=== PATIENT | female | born 1955 | race Caucasian/White ===

== ENCOUNTER 2023-06-29 14:03 | Outpatient (CLI) | payer MEDICARE, SELFPAY ==
[2023-06-29 14:05] LABS: Abs Immature Grans 0.01 10^3/uL (0.0-0.06); Absolute Basophil Count 0.05 10^3/uL (0.0-0.2); Absolute Eosinophil Count 0.09 10^3/uL (0.0-0.7); Absolute Lymphocyte Count 2.64 10^3/uL (1.2-3.4); Absolute Monocyte Count 0.49 10^3/uL (0.1-0.8); Absolute Neutrophil Count 3.11 10^3/uL (1.2-6.7); Basophils % 0.8; Eosinophils % 1.4; HCT 45.4 % (36.0-46.0); HGB 15.3 g/dL (11.2-15.7); Immature Grans % 0.2; Lymphocytes % 41.3; MCH 32.7 pg (27.0-33.0); MCHC 33.7 % (32.0-36.0); MCV 97 fL (80-95); MPV 9.8 fL (8.0-11.0); Monocytes % 7.7; Neutrophils % 48.6; Platelet Count 299 10^3/uL (130-400); RBC 4.68 10^6/uL (3.93-5.22); RDW 11.7 % (11.7-14.6); RDW-SD 41.9 fL; WBC 6.39 10^3/uL (4.4-10.8)
[2023-06-29 14:24] LABS: ALT 31 U/L (14-59); AST 29 U/L (15-37); Albumin 3.8 g/dL (3.4-5.0); Alkaline Phosphatase 105 U/L (46-116); Anion Gap 8.3 mmol/L (3-11); BUN 11 mg/dL (7-18); Bilirubin, Total 1.2 mg/dL (0.2-1.0); C-Reactive Protein 0.81 mg/dL (0.0-0.3); CO2 27.7 mmol/L (21.0-32.0); CREATININE 1.3 mg/dL (0.55-1.02); Calcium 10.5 mg/dL (8.5-10.1); Chloride 101 mmol/L (98-107); Estimated GFR 45.35 (mL/min/1.73m2); Glucose 121 mg/dL (74-106); Potassium 3.9 mmol/L (3.5-5.1); Sodium 137 mmol/L (136-145); Total Protein 8.1 g/dL (6.4-8.2)
[2023-06-30 12:25] LABS: ESR (LRH) 18 mm/hr
== END 2023-06-29 14:04 | disposition home or self-care (01) ==
LOC: LBO 14:04
PROVIDERS: Visit Provider Internal Medicine Rheumatology
DX: M45.9 Ankylosing spondylitis of unspecified sites in spine (principal); Z51.81 Encounter for therapeutic drug level monitoring; Z79.899 Other long term (current) drug therapy
CPT/HCPCS: 36415; 80053; 85652; 85025; 86140

== ENCOUNTER → 2023-12-01 01:49 | Outpatient (CLI) | payer MEDICARE, SELFPAY ==
--- NOTE | 2023-12-01 | DI.RAD_ITS ---
Exam(s) XR SACROILIAC JOINTS EXAM: XR SACROILIAC JOINTS CLINICAL HISTORY: M53.3(724.6) Sacroiliac jnt pain. TECHNIQUE: 2D digital imaging was performed. COMPARISON: No exams were available for comparison FINDINGS: 3 views No evidence of sacral fractures nor osseous lesions. Mild degenerative changes in the sacroiliac james nts appear age-appropriate. There is no ankylosis of the SI joints. On the lateral view there is chronic degenerative disc disease at multiple levels noted in the lumbar spine. Also facet arthropathy. IMPRESSION: As above. No ankylosis of the SI joints. No significant osseous lesions. DATA REPOSITORY: RADIATION DOSE DELIVERED:
--- NOTE | 2023-12-01 | DI.RAD_ITS ---
Exam(s) XR LUMBAR SPINE COMPLETE EXAM: XR LUMBAR SPINE COMPLETE CLINICAL HISTORY: M54.9(724.5) Back pain. TECHNIQUE: 2D digital imaging was performed. COMPARISON: No exams were available for comparison FINDINGS: Seven views. There is no evidence of fracture, listhesis, nor pars defects. There is moderate-advanced disc space narrowing at each level in the lumbar spine and there is multilevel vacuum phenomenon within the dis c spaces, most prominent at L3-4 and L4-5 levels. There is both anterior and posterior multilevel os seous lipping. Also short AP dimensions of the pedicles. I suspect that there is spinal canal steno sis here. Moderate degenerative changes are noted in the facet joints. No ankylosis of the SI joints. There i s no true scoliosis. IMPRESSION: Multilevel advanced chronic degenerative disc disease. Probable spinal canal stenosis. DATA REPOSITORY: RADIATION DOSE DELIVERED:
--- NOTE | 2023-12-01 | DI.RAD_ITS ---
Exam(s) XR WRIST RT LIMITED EXAM: XR WRIST RT LIMITED CLINICAL HISTORY: M25.539(719.43) wrist pain; AP/LAT. TECHNIQUE: 2D digital imaging was performed. COMPARISON: No exams were available for comparison FINDINGS: Two views-AP and lateral No evidence of fracture nor dislocation nor significant ulnar variance. Scaphoid and scapholunate di stance normal. No degenerative changes in the carpal bones including no obvious abnormality at the 1 st carpometacarpal joint. Bone density is normal. No osseous lesions and no erosions. IMPRESSION: No significant osseous findings on these two views of the right wrist. DATA REPOSITORY: RADIATION DOSE DELIVERED:
--- NOTE | 2023-12-01 | DI.RAD_ITS ---
Exam(s) XR WRIST LT LIMITED EXAM: XR WRIST LT LIMITED CLINICAL HISTORY: M25.539(719.43) wrist pain; AP/LAT. TECHNIQUE: 2D digital imaging was performed. COMPARISON: CR XR WRIST RT LIMITED from 12/01/2023 FINDINGS: Two views-AP and lateral No evidence of fracture or dislocation nor significant ulnar variance. Bone density normal. No osse ous lesions. Scaphoid and scapholunate distance unremarkable. There is, however, moderate degenerative change in the 1st carpometacarpal joint on this side. IMPRESSION: Degenerative changes in the 1st carpometacarpal joint. Similar findings are not seen on the opposite -right side. DATA REPOSITORY: RADIATION DOSE DELIVERED:
--- NOTE | 2023-12-01 | DI.RAD_ITS ---
Exam(s) XR CERVICAL SPINE COMP 4-5V EXAM: XR CERVICAL SPINE COMP 4-5V CLINICAL HISTORY: M54.2(723.1) Neck pain. TECHNIQUE: 2D digital imaging was performed. COMPARISON: No exams were available for comparison FINDINGS: Six views. No evidence of fracture, listhesis, nor offset of the spinal laminar line. There is mild disc space narrowing at C5-6 and C6-7 levels. Small bilateral Luschka joint osteophytes are seen at these level s. There are no cervical ribs. No osseous lesions. Moderate facet arthropathy. IMPRESSION: Degenerative changes and degenerative disc disease. No fractures. DATA REPOSITORY: RADIATION DOSE DELIVERED:
--- NOTE | 2023-12-01 | DI.RAD_ITS ---
Exam(s) XR ARTHRITIS SERIES EXAM: XR ARTHRITIS SERIES CLINICAL HISTORY: M79.643 hand pain. TECHNIQUE: 2D digital imaging was performed. COMPARISON: No exams were available for comparison FINDINGS: Two views both hands-AP and [place] views: There is no evidence of fracture nor subluxations. No abnormal para-articular calcifications. No er osions evident. There is moderate degenerative change in the left hand at the level the 1st carpomet acarpal joint. Similar finding not seen at the 1st carpometacarpal joint of the opposite-right hand. There are minimal degenerative changes in the interphalangeal joints. Metacarpophalangeal joints a ppear unremarkable. IMPRESSION: Degenerative changes at the 1st carpometacarpal joint in the left hand. DATA REPOSITORY: RADIATION DOSE DELIVERED:
== END ==
PROVIDERS: Visit Provider Internal Medicine Rheumatology
DX: M18.12 Unilateral primary osteoarthritis of first carpometacarpal joint, left hand (principal)
CPT/HCPCS: 72050; 72110; 72202; 73100; 73120

== ENCOUNTER 2025-06-17 04:13 | Outpatient (CLI) | payer MEDICARE, SELFPAY ==
[2025-06-17 16:04] LABS: Hemoglobin A1C 5.6 % (<5.7)
[2025-06-17 16:29] LABS: ALT 31 U/L (14-59); AST 25 U/L (15-37); Albumin 3.8 g/dL (3.4-5.0); Alkaline Phosphatase 125 U/L (46-116); Anion Gap 10.6 mmol/L (3-11); BUN 16 mg/dL (7-18); Bilirubin, Total 0.9 mg/dL (0.2-1.0); CO2 25.4 mmol/L (21.0-32.0); Calcium 9.8 mg/dL (8.5-10.1); Chloride 102 mmol/L (98-107); Estimated GFR 49.31 (mL/min/1.73m2); Glucose 107 mg/dL (74-106); Potassium 4.1 mmol/L (3.5-5.1); Sodium 138 mmol/L (136-145); Total Protein 7.9 g/dL (6.4-8.2)
== END 2025-06-17 04:14 | disposition home or self-care (01) ==
PROVIDERS: PCP Nurse Practitioner Family; Referring Provider Nurse Practitioner Family; Visit Provider Nurse Practitioner Family
DX: R73.09 Other abnormal glucose (principal); R79.89 Other specified abnormal findings of blood chemistry
CPT/HCPCS: 36415; 80053; 83036

== ENCOUNTER 2025-07-24 03:18 | Outpatient (CLI) | payer MEDICARE, SELFPAY ==
[2025-07-24 15:20] LABS: Anion Gap 9.1 mmol/L (3-11); BUN 21 mg/dL (7-18); CO2 28.9 mmol/L (21.0-32.0); Calcium 10.1 mg/dL (8.5-10.1); Chloride 99 mmol/L (98-107); Glucose 96 mg/dL (74-106); Potassium 4.2 mmol/L (3.5-5.1); Sodium 137 mmol/L (136-145)
== END 2025-07-24 03:19 | disposition home or self-care (01) ==
LOC: LBO 03:18
PROVIDERS: PCP Nurse Practitioner Family; Visit Provider Nurse Practitioner Family
DX: I10 Essential (primary) hypertension (principal)
CPT/HCPCS: 36415; 80048